=== PATIENT | male | born 1970 | race Caucasian/White ===

== ENCOUNTER 2024-06-07 04:03 | Emergency (ER) | payer OTHER, SELFPAY ==
[2024-06-07 04:14] VITALS: PULSE 72; RESP 18; O2SAT 98
[2024-06-07 04:35] VITALS: BMI 27.8
[2024-06-07 04:36] VITALS: BP 120/85; PULSE 90; RESP 20; TEMP 36.4; O2SAT 99
[2024-06-07 06:15] LABS: Basophils % (Auto) 0 % (0-2.5); Eosinophils # (Auto) 0.1 Thou/mm3 (0.0-0.5); Eosinophils % (Auto) 0 % (0-10); Hematocrit 47.7 % (41.0-53.0); Hemoglobin 16.6 g/dL (13.5-16.0); Immature Granulocytes % (Auto) 1 % (0-0); Immature Granulocytes Auto 0.08 Thou/mm3 (0.00-0.00); Lymphocytes # (Auto) 0.4 Thou/mm3 (1.0-4.8); Lymphocytes % (Auto) 2 % (10-50); Mean Corpuscular HGB Conc 34.8 g/dl (31.0-37.0); Mean Corpuscular Hemoglobin 31.1 pg (25.0-35.0); Mean Corpuscular Volume 89 fL (80-100); Monocytes # (Auto) 0.7 Thou/mm3 (0.0-0.8); Monocytes % (Auto) 4 % (0-12); Neutrophils # (Auto) 14.4 Thou/mm3 (1.8-7.7); Neutrophils % (Auto) 93 % (37-80); Nucleated Red Blood Cell % 0 /100 WBC (0); Platelet Count 221 Thou/mm3 (140-440); RDW Standard Deviation 40.2 fL (35.1-43.9); Red Blood Count 5.34 Miln/mm3 (4.50-5.90); White Blood Count 15.6 Thou/mm3 (3.8-10.6)
--- NOTE | 2024-06-07 06:28 | PD.EDNV ---
Nausea/Vomit./Diarrhea-RME/HPI General Chief complaint: Nausea/Vomiting/Diarrhea Stated complaint: NAUSEA, VOMITING Time Seen by Provider: 06/07/24 05:28 Arrival date/time: 06/07/24 04:03 RME / HPI RME / HPI Narrative: Patient is a 54 year old male presenting to the ED complaining of nausea,vomiting and diarrhea since last night after eating his left overs form 2 days ago. Patient states he vomited more then 10 times. Denies fevers, chills, constipation, urinary symptoms. Denies abdominal pain at this time. Patient reports history of hypertension. Related Data Previous Rx's ?Medication ?Instructions ?Recorded benzonatate 100 mg capsule 100 mg PO TID #14 caps 09/15/23 ibuprofen 600 mg tablet 600 mg PO Q6H #30 tabs 09/15/23 famotidine 20 mg tablet (Pepcid) 20 mg PO QDAY #30 tabs 10/18/23 benzonatate 100 mg capsule 100 mg PO TID #14 caps 02/14/24 ibuprofen 800 mg tablet 800 mg PO TID PRN pain #30 tabs 02/14/24 ondansetron 4 mg disintegrating 4 mg PO Q8H PRN nausea and 06/07/24 tablet vomiting #7 tabs Allergies Allergy/AdvReac Type Severity Reaction Status Date / Time No Known Allergies Allergy Verified 06/07/24 04:43 Review of Systems Review of Systems Narrative Review of Systems: Gen: No fever, no chills, no weight loss EYES: No discharge, no visual changes, no pain HEENT: No ear pain, no congestion, no sore throat PULM: No shortness of breath, no cough, no congestion CV: No chest pain, no dyspnea on exertion, no palpitations GI:+nausea,vomiting, diarrhea. no pain, no constipation : No frequency, no urgency, no dysuria Musc/skel: No joint pain, no back pain Skin: No rash Psyc: No hallucinations, no depression Heme/Lymph: No easy bleeding or bruising tendencies Neuro: No weakness, no headache Past Medical History Past Medical History NEUROLOGIC: Negative Neurological Disorders CARDIAC: Positive Hypertension; Negative Cardiac Disorders or Congestive Heart Failure RESPIRATORY: Negative Chronic Obstructive Pulmonary Disease (COPD) GENITOURINARY: Negative Renal Disease ENDOCRINE: Negative Diabetes Mellitus Type 1 or Diabetes Mellitus Type 2 Social History SMOKING STATUS: Former smoker ED Exam Narrative Physical exam: GENERAL APPEARANCE: AxOx4, generally well-appearing, no acute distress. HEENT: NC, AT. MMM. EOMI, clear conjunctiva, oropharynx clear. NECK: Supple without lymphadenopathy. No stiffness or restricted ROM. HEART: Normal rate and regular rhythm, normal S1/S1, no m/r/g LUNGS: CTAB, moving air well. No crackles or wheezes are heard. ABDOMEN: Soft, nontender, nondistended with good bowel sounds heard. BACK: No midline C/T/L spine pain or deformity, No CVAT, no obvious deformity. EXTREMITIES: Without cyanosis, clubbing or edema. MUSCULOSKELETAL: FROM of all major joints, no chest tenderness NEUROLOGICAL: Grossly nonfocal. Alert and oriented, moving all 4 extremities. CN not formally tested but appear grossly intact. Observed to ambulate with normal gait. Skin: Warm and dry without any rash. Course Quality Measures none Orders Category Date Time Status Insert IV NOW Care 06/07/24 05:30 Completed CBC Stat Lab 06/07/24 06:06 Completed CMP [Comprehensive Metabolic Panel] Stat Lab 06/07/24 06:06 Completed Sodium Chloride 0.9% 1000 ml [Ns] 1,000 ml Med 06/07/24 06:28 Discontinued IV 999 mls/hr Vital Signs Vital signs: Vital Signs Temperature 97.6 F 06/07/24 04:36 Pulse Rate 90 06/07/24 04:36 Respiratory Rate 20 06/07/24 04:36 Blood Pressure 120/85 H 06/07/24 04:36 Pulse Oximetry (%) 99 06/07/24 04:36 Oxygen Delivery Method Room Air 06/07/24 04:36 Nausea/Vomiting/Diarrhea Patient data External records reviewed:: [facility] previous records Clinical information provided by:: patient Social determinants that could affect healthcare access:: none Patient has the following chronic illnesses:: hypertension How is presenting disease/condition affected by chronic disease/condition?: uneffected by Evaluation data The following diagnostics were reviewed and interpreted by me:: lab results Lab and/or radiology exams considered but not ordered:: none Interpretation Summary: see above Medications / Prescriptions Medications / Prescriptions considered but not ordered:: none Medication administrations:: Medication Administration History Discontinued Medications Sodium Chloride (Ns) 1,000 mls @ 999 mls/hr IV .Q1H1M ONE Stop: 06/07/24 07:28 Last Infusion: 06/07/24 08:22 Dose: Infused Documented By: Admin: 06/07/24 06:45 Dose: 999 mls/hr Documented By: LOLITA see above Consultations Consultation(s) initiated? (list below): No Diagnosis Nausea Differential Diagnosis: other (food poisoning, gastritis, gastroenteritis, acute cholecystitis, cholelithiasis. ) Most likely diagnosis given after review of the tests above:: food poisoning Admission Indicated Admission indicated?: not indicated Admission Request Was there a request for admission?: No Disposition Plan Disposition Plan: Discharge Discharge Attestation Discharge Attestation: The patient and all family members were given an opportunity to ask questions and understood the discharge instructions. Discharge instructions specifically effects, indications for sooner follow up or return to the emergency department, and the expected course of current diagnosis. Patient condition: Stable Discharge Plan Plan Patient Disposition: HOME (Self Care) Prescriptions/Referrals Prescriptions/Med Rec: New ondansetron 4 mg tablet,disintegrating 4 mg PO Q8H PRN (Reason: nausea and vomiting) Qty: 7 0RF No Action benzonatate 100 mg capsule 100 mg PO TID Qty: 14 0RF ibuprofen 600 mg tablet 600 mg PO Q6H Qty: 30 0RF ibuprofen 800 mg tablet 800 mg PO TID PRN (Reason: pain) Qty: 30 0RF benzonatate 100 mg capsule 100 mg PO TID Qty: 14 0RF famotidine [Pepcid] 20 mg tablet 20 mg PO QDAY Qty: 30 0RF Referrals: No Primary/Family,Physician [Primary Care Provider] - In 1 week Problem List Clinical Impression: Food poisoning Patient/Caregiver Discharge Instructions Education Materials: ED Food Poisoning (Adult) Additional Instructions: [place] diet for 48 hours. Follow-up with your primary care doctor in 2 to 3 days if symptoms or not improving. You can return to the emergency department sooner symptoms worsen or if you notice any new or concerning issues Print Language: [place] Citizen Stand Alone Forms: Joanne Award Info., Work/School Release, Patient Portal Info Letter
[2024-06-07 06:30] VITALS: BP 134/88; PULSE 77; RESP 18; TEMP 36.7; O2SAT 97
[2024-06-07 06:41] LABS: Alanine Aminotransferase 21 U/L (10-49); Albumin, Serum 4.8 gm/dL (3.5-5.0); Albumin/Globulin Ratio 1.7 (1.2-2.2); Alkaline Phosphatase 75 U/L (46-116); Anion Gap 7 (7-16); Aspartate Amino Transferase 20 U/L (0-34); BUN/Creatinine Ratio 22 Ratio (12-20); Bilirubin,Total 1.2 mg/dL (0.3-1.2); Blood Urea Nitrogen 22 mg/dL (9-23); Calcium 9.8 mg/dL (8.3-10.6); Calcium (Corrected) 9.8 mg/dL (8.5-10.1); Carbon Dioxide 27.7 mMol/L (20.0-31.0); Chloride 103 mMol/L (98-107); Estimated Creatinine Clearance 94.8 mL/min (>60); Globulin 2.8 gm/dL (2.3-3.5); Glucose 117 mg/dL (74-106); Osmolality,Calculated 279 (275-295); Potassium 4.5 mMol/L (3.4-5.1); Sodium 138 mMol/L (136-145); Total Protein 7.6 gm/dL (5.7-8.2); eGFR > 60 See Note
[2024-06-07] MEDS: SODIUM CHLORIDE 0.9% 1000 ML 1,000 ML 999 ML IV (06:45)
[2024-06-07 08:00] VITALS: BP 134/85; PULSE 86; RESP 20; TEMP 36.6; O2SAT 97
== END 2024-06-07 09:35 | disposition home or self-care (01) ==
PROVIDERS: Emergency Medicine; Emergency Provider Emergency Medicine
DX: A05.9 Bacterial foodborne intoxication, unspecified (principal)
CPT/HCPCS: 36415; 80053; 85025; 96360; 96361; 99284; J7030

== ENCOUNTER 2024-08-15 17:52 | Emergency (ER) | payer OTHER, SELFPAY ==
[2024-08-15 18:09] VITALS: PULSE 78; O2SAT 98; BMI 27.1
--- NOTE | 2024-08-15 18:12 | EKG_ITS ---
[facility] Test Date: 2024-08-15 Pat Name: ELOINA BRAMBILA Department: Room: - Gender: Male Professor Of Music: : 1970 Requested By: Lala Archibald Order Number: [id number] Reading MD: Lala Archibald Measurements Intervals [place] Rate: 103 P: 52 [place]: 124 QRS: 19 QRSD: 88 T: 86 QT: 336 QTc: 442 Interpretive Statements SINUS TACHYCARDIA POSSIBLE RIGHT VENTRICULAR CONDUCTION DELAY [RSR (QR) IN V1/V2] NONSPECIFIC ST & T-WAVE ABNORMALITY ABNORMAL RHYTHM ECG Compared to ECG 06/01/2024 23:35:13 Sinus bradycardia no longer present T-wave abnormality still present /store/S0/[id number]/ecg/[id number].pdf
--- NOTE | 2024-08-15 18:14 | PC.NURSE ---
CHARGE NURSE INFORMED THAT PT HAD UNKNOWN LOC AND NEEDS A ROOM
[2024-08-15 18:16] VITALS: BP 124/82; PULSE 98; RESP 20; TEMP 39.6; O2SAT 98
--- NOTE | 2024-08-15 18:24 | XR_ITS ---
Examination: PA chest single view Technique upright PA chest single view Exam date and time: August 15, 2024 1825 hrs. Indications: Sepsis today. Findings: Normal heart size. Lungs are clear. Mild osteopenia Impression: No pneumonia identified
--- NOTE | 2024-08-15 18:25 | EDNOTE_ITS ---
ED Syncope RME/HPI General Chief Complaint: Syncope / Near Syncope Stated Complaint: PASSED OUT AT WORK, UNK LENGTH Time Seen by Provider: 08/15/24 18:01 Arrival date/time: 08/15/24 17:52 RME / HPI RME / HPI narrative: 54-year-old male patient with significant history of hypertension, was brought in by EMS for evaluation regarding syncope. 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 Patient's been coughing for several days with yellowish phlegm and chest pain with coughing. In the triage patient was noted to be febrile 103, sepsis alert was initiated right away. Denies any headache denies any neck pain. Denies any abdominal pain. Patient denies any other complaints. No medication was taken prior to arrival. Related Data Previous Rx's ?Medication ?Instructions ?Recorded benzonatate 100 mg capsule 100 mg PO TID #14 caps 09/15/23 ibuprofen 600 mg tablet 600 mg PO Q6H #30 tabs 09/15/23 famotidine 20 mg tablet (Pepcid) 20 mg PO QDAY #30 tabs 10/18/23 benzonatate 100 mg capsule 100 mg PO TID #14 caps 02/14/24 ibuprofen 800 mg tablet 800 mg PO TID PRN pain #30 tabs 02/14/24 ondansetron 4 mg disintegrating 4 mg PO Q8H PRN nausea and 06/07/24 tablet vomiting #7 tabs ibuprofen 800 mg tablet 800 mg PO TID PRN pain #30 tabs 08/15/24 oseltamivir 75 mg capsule (Tamiflu) 75 mg PO Q12H 5 days #10 caps 08/15/24 Allergies Allergy/AdvReac Type Severity Reaction Status Date / Time No Known Allergies Allergy Verified 08/15/24 18:12 Review of Systems Review of Systems Narrative Review of Systems: Review of system reviewed and within normal limits except mentioned in HPI ED Exam Narrative Physical exam: VITAL SIGNS: Reviewed. GENERAL APPEARANCE: Alert and interactive, follows commands, no acute distress, febrile HEAD AND FACE: Non-traumatic. ENT: PERRL, pink conjunctivitis, eyelid no trauma, Mucous membrane moist. NECK: Supple, nontender, no nuchal rigidity. CHEST: No tenderness, no crepitus, no paradoxical movement, no retractions. LUNGS: Clear, well ventilated, symmetric, no rales, no wheezing, no ronchi, no stridor, good breath sounds bilaterally. HEART: Tachycardic, no murmur, no gallops. ABDOMEN: Soft, positive bowel sounds, nondistended, no guarding, nontender, no rebound, no masses, RECTAL: Deferred. GENITAL: Deferred. NEUROLOGICAL: Gross motor function intact sensory function intact, Appropriate for age. MUSCULOSKELETAL: low back nontender, full range of motion. EXTREMITIES: Nontender, full range of motion. SKIN: Color pink, dry, no rash, no lacerations, no abrasions, no contusions. LYMPHATICS: Deferred. Course Quality Measures none Orders Category Date Time Status Flatwork Catcher STAT Care 08/15/24 18:23 Completed Continuous Pulse Oximetry STAT Care 08/15/24 18:23 Completed EKG (ED ONLY) *Do not use* NOW Care 08/15/24 18:12 Completed EKG (ED ONLY) *Do not use* NOW Care 08/15/24 18:23 Completed In and Out Catheter X1PRN Care 08/15/24 18:23 Completed Insert IV NOW Care 08/15/24 18:23 Completed NPO STAT Care 08/15/24 18:23 Completed Strict Intake and Output Routine Care 08/15/24 18:23 Ordered EKG (ED Only) Stat Exams 08/15/24 18:12 Draft EKG (ED Only) Stat Exams 08/15/24 18:23 Ordered XR chest 1V SEPSIS PROTOCOL Stat Exams 08/15/24 18:24 Completed B-Type Natriuretic Peptide Stat Lab 08/15/24 18:34 Completed Blood Culture (Lab) Stat Lab 08/15/24 18:34 Received CBC Stat Lab 08/15/24 18:34 Completed Comprehensive Metabolic Panel Stat Lab 08/15/24 18:34 Completed LDH (Lactate Dehydrogenase) Stat Lab 08/15/24 18:34 Completed Lactate (Lactic Acid) Stat Lab 08/15/24 18:34 Completed Lipase Stat Lab 08/15/24 18:34 Completed Magnesium Stat Lab 08/15/24 18:34 Completed Partial Thromboplastin Time Stat Lab 08/15/24 18:34 Completed Phosphorous Stat Lab 08/15/24 18:34 Completed Procalcitonin Stat Lab 08/15/24 18:34 Completed Prothrombin Time with INR Stat Lab 08/15/24 18:34 Completed Troponin I Stat Lab 08/15/24 18:34 Completed Urinalysis Stat Lab 08/15/24 20:52 Completed Urine Culture Stat Lab 08/15/24 20:52 Received Acetaminophen Tab [Tylenol ES Tab] Med 08/15/24 19:33 Discontinued 1,000 mg PO X1 ONE Ibuprofen Tab [Motrin Tab] Med 08/15/24 18:23 Discontinued 800 mg PO X1 ONE Magnesium Oxide [Mag-Ox 400] Med 08/15/24 21:07 Discontinued 400 mg PO X1 ONE Oseltamivir [Tamiflu] Med 08/15/24 19:33 Discontinued 75 mg PO X1 ONE Sodium Chloride 0.9% 1000 ml [Ns] 1,000 ml Med 08/15/24 18:24 Discontinued IV 999 mls/hr Oxygen Delivery NOW RT 08/15/24 18:23 Completed Vital Signs Vital signs: Vital Signs Temperature 103.2 F H 08/15/24 18:16 Pulse Rate 98 08/15/24 18:16 Respiratory Rate 20 08/15/24 18:16 Blood Pressure 124/82 08/15/24 18:16 Pulse Oximetry (%) 98 08/15/24 18:16 Oxygen Delivery Method Room Air 08/15/24 18:16 Syncope MDM Narrative MDM Narrative:: 54-year-old male patient with significant history of hypertension, was brought in by EMS for evaluation regarding syncope. 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 Patient's been coughing for several days with yellowish phlegm and chest pain with coughing. In the triage patient was noted to be febrile 103, sepsis alert was initiated right away. Denies any headache denies any neck pain. Denies any abdominal pain. Patient denies any other complaints. No medication was taken prior to arrival. Patient tested positive for influenza. Chest x-ray came back unremarkable. Laboratory workup also came back with no acute pathology noted. Except for magnesium of 1.4, phosphorus of 1.3 Patient received IV fluids for hydration, Tamiflu, Tylenol, and magnesium oxide Patient data External records reviewed:: None Clinical information provided by:: patient Social determinants that could affect healthcare access:: none Patient has the following chronic illnesses:: None How is presenting disease/condition affected by chronic disease/condition?: no chronic disease Evaluation data The following diagnostics were reviewed and interpreted by me:: lab results, radiology exam(s) and EKG tracing(s) Lab and/or radiology exams considered but not ordered:: None Interpretation Summary: Patient tested positive for influenza. Chest x-ray came back unremarkable. Laboratory workup also came back with no acute pathology noted. Except for magnesium of 1.4, phosphorus of 1.3 urinalysis no UTI EKG as interpreted by me showed sinus tachycardia, ventricular rate of [address] segment elevation depression noted. Medications / Prescriptions Medications or Prescriptions considered but not ordered:: None Medication administrations:: Medication Administration History Discontinued Medications Acetaminophen (Acetaminophen 500 Mg Tablet) 1,000 mg PO X1 ONE Stop: 08/15/24 19:34 Last Admin: 08/15/24 20:11 Dose: 1,000 mg Documented By: LIZZ Sodium Chloride (Ns) 1,000 mls @ 999 mls/hr IV .Q1H1M ONE Stop: 08/15/24 19:24 Last Admin: 08/15/24 19:34 Dose: 999 mls/hr Documented By: MARY Ibuprofen (Ibuprofen Tab 400 Mg Tablet) 800 mg PO X1 ONE Stop: 08/15/24 18:24 Last Admin: 08/15/24 19:05 Dose: 800 mg Documented By: OA Magnesium Oxide (Magnesium Oxide 400 Mg Tablet) 400 mg PO X1 ONE Stop: 08/15/24 21:08 Oseltamivir Phosphate (Oseltamivir 75 Mg Capsule) 75 mg PO X1 ONE Stop: 08/15/24 19:34 Last Admin: 08/15/24 20:11 Dose: 75 mg Documented By: OA Patient received abdominal fluid, magnesium oxide, Motrin, IV fluid hydration Tylenol Consultations Consultation(s) initiated? (list below): No Diagnosis Syncope Differential Diagnosis: vasovagal syncope, dehydration and other (Influenza) Most likely diagnosis given after review of the tests above:: Influenza Admission Indicated Admission indicated?: not indicated Explain why admission is indicated or not indicated:: Stable Admission Request Was there a request for admission?: No Disposition Plan Disposition Plan: Discharge Discharge Attestation Discharge Attestation: The patient was given an opportunity to ask questions and understood the discharge instructions. Discharge instructions specifically effects, indications for sooner follow up or return to the emergency department, and the expected course of current diagnosis. Patient condition: Stable Discharge Plan Plan Patient Disposition: HOME (Self Care) Disposition Comment: stable Prescriptions/Referrals Prescriptions/Med Rec: New oseltamivir [Tamiflu] 75 mg capsule 75 mg PO Q12H 5 Days Qty: 10 0RF ibuprofen 800 mg tablet 800 mg PO TID PRN (Reason: pain) Qty: 30 0RF No Action benzonatate 100 mg capsule 100 mg PO TID Qty: 14 0RF ibuprofen 600 mg tablet 600 mg PO Q6H Qty: 30 0RF ibuprofen 800 mg tablet 800 mg PO TID PRN (Reason: pain) Qty: 30 0RF benzonatate 100 mg capsule 100 mg PO TID Qty: 14 0RF ondansetron 4 mg tablet,disintegrating 4 mg PO Q8H PRN (Reason: nausea and vomiting) Qty: 7 0RF famotidine [Pepcid] 20 mg tablet 20 mg PO QDAY Qty: 30 0RF Referrals: Corina Pena [Primary Care Provider] - In 1 week Problem List Clinical Impression: Vasovagal syncope, Influenza Patient/Caregiver Discharge Instructions Discharge Activity: activity as tolerated Education Materials: The Flu (Influenza) Additional Instructions: Thank you for the opportunity for serving you today. You are stable for discharged . You are advised to: Follow-up with your PCP in 1 to 2 days Return to ED for worsening of symptoms Increase oral fluids Take medication as prescribed Print Language: Trin[place] Stand Alone Forms: Joanne Award Info., Work/School Release, Patient Portal Info Letter PA/JOELLE Supervising Physician DEEDEE/JOELLE Supervising Physician: MD Ana
[2024-08-15 18:41] LABS: Lactate (Lactic Acid) 1.2 mMol/L (0.4-2.0)
[2024-08-15 18:46] LABS: Basophils % (Auto) 0 % (0-2.5); Eosinophils % (Auto) 0 % (0-10); Hematocrit 42.7 % (41.0-53.0); Hemoglobin 15.2 g/dL (13.5-16.0); Immature Granulocytes % (Auto) 0 % (0-0); Immature Granulocytes Auto 0.04 Thou/mm3 (0.00-0.00); Lymphocytes # (Auto) 0.4 Thou/mm3 (1.0-4.8); Lymphocytes % (Auto) 3 % (10-50); Mean Corpuscular HGB Conc 35.6 g/dl (31.0-37.0); Mean Corpuscular Hemoglobin 31.1 pg (25.0-35.0); Mean Corpuscular Volume 88 fL (80-100); Monocytes # (Auto) 0.8 Thou/mm3 (0.0-0.8); Monocytes % (Auto) 7 % (0-12); Neutrophils # (Auto) 10.6 Thou/mm3 (1.8-7.7); Neutrophils % (Auto) 90 % (37-80); Nucleated Red Blood Cell % 0 /100 WBC (0); Platelet Count 202 Thou/mm3 (140-440); RDW Standard Deviation 39.5 fL (35.1-43.9); Red Blood Count 4.88 Miln/mm3 (4.50-5.90); White Blood Count 11.8 Thou/mm3 (3.8-10.6)
[2024-08-15 19:00] LABS: B-Type Natriuretic Peptide 45 pg/mL (0-100)
[2024-08-15 19:01] LABS: Partial Thromboplastin Time 28.5 Seconds (22.0-36.0); Prothrombin Time 11.2 Seconds (9.0-12.2)
[2024-08-15 19:05] VITALS: TEMP 39.4
[2024-08-15] MEDS: IBUPROFEN TAB 400 MG TABLET 800 MG PO (19:05)
[2024-08-15 19:09] LABS: Alanine Aminotransferase 23 U/L (10-49); Albumin, Serum 4.7 gm/dL (3.5-5.0); Albumin/Globulin Ratio 1.7 (1.2-2.2); Alkaline Phosphatase 67 U/L (46-116); Anion Gap 8 (7-16); Aspartate Amino Transferase 22 U/L (0-34); BUN/Creatinine Ratio 14 Ratio (12-20); Bilirubin,Total 0.7 mg/dL (0.3-1.2); Blood Urea Nitrogen 13 mg/dL (9-23); Calcium 9.6 mg/dL (8.3-10.6); Calcium (Corrected) 9.6 mg/dL (8.5-10.1); Carbon Dioxide 25.6 mMol/L (20.0-31.0); Chloride 101 mMol/L (98-107); Creatinine (Component) 0.9 mg/dL (0.6-1.3); Estimated Creatinine Clearance 105.4 mL/min (>60); Globulin 2.8 gm/dL (2.3-3.5); Glucose 101 mg/dL (74-106); LDH (Lactate Dehydrogenase) 174 U/L (120-246); Lipase 32 U/L (12-53); Magnesium 1.4 mg/dL (1.6-2.6); Osmolality,Calculated 270 (275-295); Phosphorous 1.3 mg/dL (2.4-5.1); Potassium 3.8 mMol/L (3.4-5.1); Procalcitonin 0.26 ng/ml (0.0-0.49); Sodium 135 mMol/L (136-145); Total Protein 7.5 gm/dL (5.7-8.2); Troponin I < 0.020 ng/mL (0.0-0.045); eGFR > 60 See Note
[2024-08-15] MEDS: SODIUM CHLORIDE 0.9% 1000 ML 1,000 ML 999 ML IV (19:34)
[2024-08-15 20:11] VITALS: TEMP 37.3
[2024-08-15] MEDS: OSELTAMIVIR 75 MG CAPSULE PO (20:11)
[2024-08-15] MEDS: ACETAMINOPHEN 500 MG TABLET 1000 MG PO (20:11)
[2024-08-15 21:04] LABS: Collection Type, Urine Clean Catch
[2024-08-15 21:16] LABS: Bilirubin,Urine Negative (Negative); Blood,Urine Trace (Negative); Clarity,Urine Clear (Clear/Hazy); Color,Urine Yellow (Lt Yel-Yel); Glucose, Urine Negative (Negative); Ketones,Urine Trace (Negative); Leukocyte Esterase,Urine Negative (Negative); Nitrite,Urine Negative (Negative); PH,Urine 8.5 (5.0-7.0); Protein,Urine 1+ (Neg - Trace); RBC,Urine 41 /hpf (0-3); Specific Gravity,Urine 1.029 (1.001-1.035); Squamous Epithelial Cell,Urine < 1 /hpf (0-5); Urobilinogen,Urine Negative mg/dL (0.0-1.0); WBC,Urine 1 /hpf (0-5)
== END 2024-08-15 21:19 | disposition home or self-care (01) ==
PROVIDERS: Nurse Practitioner Family; Emergency Provider Emergency Medicine; PCP Physician Assistant
DX: J11.1 Influenza due to unidentified influenza virus with other respiratory manifestations (principal); R55 Syncope and collapse; I10 Essential (primary) hypertension; R00.0 Tachycardia, unspecified
CPT/HCPCS: 36415; 71045; 80053; 81001; 83605; 83615; 83690; 83735; 83880; 84100; 84145; 84484; 85025; 85610; 85730; 87040; 87086; 87400; 93005; 99284; J7030; A9270

== ENCOUNTER 2024-09-22 19:20 | Emergency (ER) | payer OTHER, SELFPAY ==
[2024-09-22 19:21] VITALS: BMI 27.1
[2024-09-22 19:55] VITALS: BP 123/84; PULSE 66; RESP 18; TEMP 37.1; O2SAT 98
--- NOTE | 2024-09-22 20:16 | EDNOTE_ITS ---
<Statement entered by Janet Sumner MD - 09/23/24 01:45> As co-signing physician, I was present and available for consult prn. I concur with the plan and care as documented by the midlevel provider. ED Wound/Laceration-RME/HPI General Chief Complaint: Wound/Laceration Stated Complaint: LACERATION RIGHT HAND FIRST KNUCKLE Time Seen by Provider: 09/22/24 19:21 Arrival date/time: 09/22/24 19:20 54-year-old male reports with complaints of a laceration to the right face hand second digit. Patient states while washing dishes he broke a glass cutting the finger he denies any stiffness numbness or tingling. Patient states that he is up-to-date on tetanus Limitations: no limitations Related Data Previous Rx's ?Medication ?Instructions ?Recorded benzonatate 100 mg capsule 100 mg PO TID #14 caps 08/30 02/19 ibuprofen 600 mg tablet 600 mg PO Q6H #30 tabs 09/15 famotidine 20 mg tablet (Pepcid) 20 mg PO QDAY #30 tab s 10/18/23 benzonatate 100 mg capsule 100 mg PO TID #14 caps 01/27 03/22 ibuprofen 800 mg tablet 800 mg PO TID PRN pain #30 t abs 02/14/24 ondansetron 4 mg disintegrating 4 mg PO Q8H PRN nausea and 06/07/24 tablet vomiting #7 tabs ibuprofen 800 mg tablet 800 mg PO TID PRN pain #30 t abs 08/15/24 sulfamethoxazole 800 1 tab PO BID 7 days #14 tabs 09/22/24 mg-trimethoprim 160 mg tablet (Bactrim DS) Allergies Allergy/AdvReac Type Severity Reaction Status Date / Time No Known Allergies Allergy Verified 08/15/24 18:12 Review of Systems Constitutional Constitutional: Denies chills and Denies fever(s) Musculoskeletal Musculoskeletal: Reports arthralgias, Denies deformity, Denies joint swelling, Denies numbness and Denies tingling Integumentary/Breasts Skin/Breast: Denies unusual bruising and Reports wounds Neurologic Neurologic: Denies numbness and Denies tingling Hematologic/Lymphatic Hematologic/Lymphatic: Denies easy bleeding and Denies easy bruising ED Exam General Limitations: Present no limitations General appearance: Present alert and in no apparent distress Extremities Exam Extremities exam: Present other (right second digit with 2.5 cm lac to base of prox phalanx medially, no ligament/tendon involvement, FROM, cap refill < 2 sec, remainder of hand unremarkable) Neurological Exam Neurological exam: Present alert, oriented X3 and CN II-XII intact Psychiatric Psychiatric exam: Present normal affect and normal mood Skin Skin exam: Present warm, dry, intact and normal color Course Quality Measures none Orders Category Date Time Status Irrigate [Wound Care] NOW Care 09/22/24 20:15 Active Set Up Suture Tray STAT Care 09/22/24 20:15 Active Lidocaine 1% 20 ml [Xylocaine 1% 20 ML] Med 09/22/24 20:15 Discontinued 10 ml INFL X1 ONE Vital Signs Vital signs: Vital Signs Temperature 98.7 F 09/22/24 19:55 Pulse Rate 66 09/22/24 19:55 Respiratory Rate 18 09/22/24 19:55 Blood Pressure 123/84 09/22/24 19:55 Pulse Oximetry (%) 98 09/22/24 19:55 Oxygen Delivery Method Room Air 09/22/24 19:55 Procedures -ED Laceration Laceration 1: Site: hand (right 2nd digits) Side (If applicable): right Size (cm): 2.5 Description: flap and irregular Depth: simple, single layer Local Anesthetic: lidocaine 1% Amount of anesthesia used (mL): 3 Pre-repair: irrigated extensively Skin layer closed with: nylon Size (cm): 3-0 Number of sutures: 2 Technique: simple, interrupted (Patient tolerated well neurovascular remained intact) Wound / Laceration Patient data External records reviewed:: None Clinical information provided by:: patient Social determinants that could affect healthcare access:: none Patient has the following chronic illnesses:: none How is presenting disease/condition affected by chronic disease/condition?: no chronic disease Evaluation data The following diagnostics were reviewed and interpreted by me:: other (specify) (none) Lab and/or radiology exams considered but not ordered:: none Interpretation Summary: n/a Medications / Prescriptions Medications or Prescriptions considered but not ordered:: none Medication administrations:: Medication Administration History Discontinued Medications Lidocaine HCl (Lidocaine Hcl 1% 20 Ml Vial) 10 ml INFL X1 ONE Stop: 09/22/24 20:16 Last Admin: 09/22/24 21:24 Dose: 10 ml Documented By: CB as above Consultations Consultation(s) initiated? (list below): No Diagnosis Wound Differential Diagnosis: abrasion and avulsion of skin Most likely diagnosis given after review of the tests above:: finger laceration Admission Indicated Admission indicated?: not indicated Admission Request Was there a request for admission?: No Disposition Plan Disposition Plan: Discharge Discharge Attestation Discharge Attestation: The patient and all family members were given an opportunity to ask questions and understood the discharge instructions. Discharge instructions specifically effects, indications for sooner follow up or return to the emergency department, and the expected course of current diagnosis. Patient condition: Stable Discharge Plan Plan Patient Disposition: HOME (Self Care) Prescriptions/Referrals Prescriptions/Med Rec: New sulfamethoxazole-trimethoprim [Bactrim DS] 800-160 mg tablet 1 tab PO BID 7 Days Qty: 14 0RF No Action benzonatate 100 mg capsule 100 mg PO TID Qty: 14 0RF ibuprofen 600 mg tablet 600 mg PO Q6H Qty: 30 0RF ibuprofen 800 mg tablet 800 mg PO TID PRN (Reason: pain) Qty: 30 0RF benzonatate 100 mg capsule 100 mg PO TID Qty: 14 0RF ondansetron 4 mg tablet,disintegrating 4 mg PO Q8H PRN (Reason: nausea and vomiting) Qty: 7 0RF famotidine [Pepcid] 20 mg tablet 20 mg PO QDAY Qty: 30 0RF ibuprofen 800 mg tablet 800 mg PO TID PRN (Reason: pain) Qty: 30 0RF Problem List Clinical Impression: Finger laceration Patient/Caregiver Discharge Instructions Discharge Activity: activity as tolerated Education Materials: ED Laceration: All Closures Additional Instructions: Keep wound clean and dry, take antibiotics as directed, follow with your primary care provider for wound check in 2 days, follow-up in 10 days to have sutures removed Print Language: Turkish Stand Alone Forms: Joanne Award Info., Patient Portal Info Letter
[2024-09-22] MEDS: LIDOCAINE HCL 1% 20 ML VIAL 10 ML INFL (21:24)
[2024-09-22] MEDS: TRIMETHOPRIM/SULFA 160/800 DS TABLET 1 TAB PO (21:40)
== END 2024-09-22 22:02 | disposition home or self-care (01) ==
PROVIDERS: Emergency Provider Emergency Medicine
DX: S61.210A Laceration without foreign body of right index finger without damage to nail, initial encounter (principal); W25.XXXA Contact with sharp glass, initial encounter; Y93.G1 Activity, food preparation and clean up
CPT/HCPCS: 12001; 99283; J3490; A9270

== ENCOUNTER → 2024-12-08 | Outpatient (CLI) | payer OTHER, MEDICAID, SELFPAY ==
[2024-12-08 14:57] LABS: Misc Send Out* See Sep Rpt
[2024-12-08 15:51] LABS: Basophils % (Auto) 1 % (0-2.5); Eosinophils # (Auto) 0.1 Thou/mm3 (0.0-0.5); Eosinophils % (Auto) 1 % (0-10); Hematocrit 42.5 % (41.0-53.0); Hemoglobin 14.5 g/dL (13.5-16.0); Immature Granulocytes % (Auto) 0 % (0-0); Immature Granulocytes Auto 0.02 Thou/mm3 (0.00-0.00); Lymphocytes % (Auto) 23 % (10-50); Mean Corpuscular HGB Conc 34.1 g/dl (31.0-37.0); Mean Corpuscular Hemoglobin 30.8 pg (25.0-35.0); Mean Corpuscular Volume 90 fL (80-100); Monocytes # (Auto) 0.6 Thou/mm3 (0.0-0.8); Monocytes % (Auto) 6 % (0-12); Neutrophils # (Auto) 6.1 Thou/mm3 (1.8-7.7); Neutrophils % (Auto) 69 % (37-80); Nucleated Red Blood Cell % 0 /100 WBC (0); Platelet Count 266 Thou/mm3 (140-440); RDW Standard Deviation 39.8 fL (35.1-43.9); Red Blood Count 4.71 Miln/mm3 (4.50-5.90); White Blood Count 8.9 Thou/mm3 (3.8-10.6)
[2024-12-08 15:56] LABS: Prothrombin Time 11.2 Seconds (9.0-12.2)
[2024-12-08 16:03] LABS: Alanine Aminotransferase 12 U/L (10-49); Albumin, Serum 4.3 gm/dL (3.5-5.0); Alkaline Phosphatase 68 U/L (46-116); Anion Gap 10 (7-16); Aspartate Amino Transferase 13 U/L (0-34); BUN/Creatinine Ratio 22 Ratio (12-20); Bilirubin,Direct 0.1 mg/dL (0.0-0.3); Bilirubin,Total 0.4 mg/dL (0.3-1.2); Blood Urea Nitrogen 22 mg/dL (9-23); C-Reactive Protein < 0.5 mg/dL (0.0-0.9); Calcium 8.7 mg/dL (8.3-10.6); Carbon Dioxide 27.6 mMol/L (20.0-31.0); Chloride 104 mMol/L (98-107); Glucose 138 mg/dL (74-106); Osmolality,Calculated 288 (275-295); Potassium 3.6 mMol/L (3.4-5.1); Sodium 142 mMol/L (136-145); Total Protein 6.7 gm/dL (5.7-8.2); eGFR > 60 See Note
[2024-12-08 16:04] LABS: Ferritin 165 ng/mL (10.5-307.3); Urea Breath Test Positive (Negative)
[2024-12-08 16:21] LABS: Sed Rate (ESR) 3 mm/hr (0-20)
[2024-12-08 16:44] LABS: Carcinoembryonic Antigen < 0.5 ng/mL (0.0-5.0); Hepatitis A Antibody IgM Non Reactive (Non React); Hepatitis B Core Antibody IgM Non Reactive (Non React); Hepatitis B Surface Antigen Non Reactive (Non React); Hepatitis C Antibody Non Reactive (Non React); Vitamin D 25 Hydroxy Total 34.2 ng/mL (7.3-40.2)
[2024-12-15 07:28] LABS: HIV Ag/Ab, 4th Gen NON-REACTIVE
== END | disposition home or self-care (01) ==
LOC: COPL 14:29
PROVIDERS: PCP Nurse Practitioner Primary Care; Referring Provider Internal Medicine Gastroenterology; Visit Provider Internal Medicine Gastroenterology
DX: R94.5 Abnormal results of liver function studies (principal); B96.81 Helicobacter pylori [H. pylori] as the cause of diseases classified elsewhere
CPT/HCPCS: 36415; 80048; 80074; 80076; 82306; 82378; 82728; 83013; 83014; 85025; 85610; 85652; 86140; 87389

== ENCOUNTER → 2024-12-09 | Outpatient (CLI) | payer OTHER, MEDICAID, SELFPAY ==
[2024-12-09 10:11] LABS: Quantiferon-TB* See Sep Rpt
== END | disposition home or self-care (01) ==
LOC: COPL 09:58
PROVIDERS: PCP Nurse Practitioner Primary Care; Referring Provider Internal Medicine Gastroenterology; Visit Provider Internal Medicine Gastroenterology
DX: R94.5 Abnormal results of liver function studies (principal); B96.81 Helicobacter pylori [H. pylori] as the cause of diseases classified elsewhere
CPT/HCPCS: 86480

== ENCOUNTER → 2025-05-21 | Outpatient (CLI) | payer MEDICAID, SELFPAY ==
--- NOTE | 2025-05-21 14:00 | XR_ITS ---
Examination: MRI abdomen without contrast Date and time of exam: May 21, 2025, 1459 hours INDICATIONS: Abdominal pain vomiting after eating weight loss 1 year Technique: Multiple MRI axial and sagittal sections abdomen. Sagittal T2-weighted images, TR 3500, TE 118 T1 weighted transverse sections, TR 688 T8.5, T2-weighted sagittal sections T1 weighted sagittal sections TR 621, TE 30 T2 axial sections, TR 4, 190, TE 84. Findings: No intrahepatic biliary tract dilatation or liver lesions Contracted gallbladder, no gallstones, normal gallbladder wall Normal common hepatic common bile duct No pancreatic mass or edema Spleen is not enlarged No ascites No hydronephrosis Aorta normal size IMPRESSION: Normal gallbladder No focal liver lesions Normal common hepatic common bile duct No hydronephrosis
--- NOTE | 2025-05-21 14:30 | XR_ITS ---
Examination: MRI pelvis without contrast Date and time of exam: May 21, 2025, 1459 hours INDICATIONS: Vomiting after eating with weight loss months Technique: Multiple MRI axial and sagittal sections pelvis Sagittal T2-weighted images, TR 3500, TE 118 T1 weighted transverse sections, TR 688 T8.5, T2-weighted sagittal sections T1 weighted sagittal sections TR 621, TE 30 T2 axial sections, TR 4, 190, TE 84. Findings: No common iliac external iliac or common femoral lymphadenopathy Normal seminal vesicles Transverse prostate dimension 4.8 cm no prostate nodules Urinary bladder intact Homogeneous marrow signal No presacral mass No diverticulitis IMPRESSION: Negative examination
== END | disposition home or self-care (01) ==
LOC: SMRI 13:54
PROVIDERS: PCP Physician Assistant; Referring Provider Physician Assistant; Visit Provider Physician Assistant
DX: R10.9 Unspecified abdominal pain (principal); R63.4 Abnormal weight loss
CPT/HCPCS: 72195; 74181